=== PATIENT | male | born 1990 | race Caucasian/White ===

== ENCOUNTER 2016-09-26 19:53 | Emergency (ER) | payer BC, SELFPAY ==
[~2016-09-26] VITALS: Ht 177.8 cm; Wt 86.2 kg
[2016-09-26 20:48] LABS: BASO % 0.1 % (0.0-1.0); EOS # 0.2 K/mm3 (0.0-0.50); EOS % 2.2 % (0.0-3.0); LARGE UNSTAINED CELL # 0.1 K/mm3 (0.0-0.4); LARGE UNSTAINED CELL % 1.3 % (0.0-4.0); LYMPH # 1.5 K/mm3 (1.5-6.5); LYMPH % 17.3 % (24.0-44.0); MEAN CORPUSCULAR HEMOGLOBIN 30.2 pg (27.0-33.0); MEAN CORPUSCULAR HGB CONC 34.2 g/dl (32.0-36.5); MEAN CORPUSCULAR VOLUME 88.3 fl (80.0-96.0); MONO # 0.4 K/mm3 (0.0-0.8); MONO % 4.7 % (0.0-5.0); NEUTROPHILS % 74.3 % (36.0-66.0); PLATELET COUNT, AUTOMATED 244 k/mm3 (150-450); RED CELL DISTRIBUTION WIDTH 11.9 % (11.5-14.5); WHITE BLOOD COUNT 8.1 K/mm3 (4.0-10.0)
[2016-09-26 21:12] VITALS: BP 136/81
--- NOTE | 2016-09-27 20:24 | ECGEPIP ---
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
== END 2016-09-26 21:20 | disposition left against medical advice (07) ==
LOC: M ED 20:25
DX: F11.10 Opioid abuse, uncomplicated (principal)

== ENCOUNTER 2017-01-04 17:07 | Emergency (ER) | payer MEDICAID, SELFPAY ==
[~2017-01-04] VITALS: Ht 177.8 cm; Wt 83.3 kg
[2017-01-04 17:09] VITALS: BP 99/71
[2017-01-04] MEDS ORDERED: NORCO, ANEXSIA 5/325MG TABLET (HYDROcodone/ACETAMINOPHEN) PO ONE (17:45)
[2017-01-04] MEDS ORDERED: NORCOTAB PO (17:56)
[2017-01-04] MEDS ORDERED: NAPR500T PO (17:56)
--- NOTE | 2017-01-04 18:20 | REP ---
Clinical: Trauma. Technique: Frontal view of the chest with multiple views of the left hemithorax. Findings: Frontal view of the chest demonstrates no acute cardiopulmonary process. Multiple views of the left hemithorax demonstrates no obvious acute rib fracture or pathology. Impression: Normal left rib series Signed by Julian Crowell MD 01/04/2017 06:12 P
== END 2017-01-04 18:13 | disposition home or self-care (01) ==
LOC: M ED 17:53
DX: S20.219A Contusion of unspecified front wall of thorax, initial encounter (principal); F17.210 Nicotine dependence, cigarettes, uncomplicated; Y04.0XXA Assault by unarmed brawl or fight, initial encounter; Y92.89 Other specified places as the place of occurrence of the external cause; Y93.89 Activity, other specified; Y99.9 Unspecified external cause status

== ENCOUNTER 2018-09-05 17:42 | Emergency (ER) | payer MEDICAID ==
[~2018-09-05] VITALS: Ht 177.8 cm; Wt 81.8 kg
[2018-09-05 17:42] VITALS: BP 134/93
[~2018-09-05 17:42] MED LIST: NAPR-50 PO; NORCOTAB PO
[2018-09-05] MEDS ORDERED: LIDO1SOL7 PO (18:10)
[2018-09-05] MEDS ORDERED: IBUP-1022 PO (18:10)
[2018-09-05] MEDS ORDERED: PENI500T PO (18:10)
[2018-09-05] MEDS ORDERED: PENICILLIN V POTASSIUM 500 MG TAB PO ONE (18:15)
[2018-09-05] MEDS ORDERED: LIDOCAINE VISCOUS 2% SOLN 15ML UDC SS ONE (18:15)
== END 2018-09-05 18:21 | disposition home or self-care (01) ==
LOC: M ED 17:42
DX: K04.7 Periapical abscess without sinus (principal); K06.9 Disorder of gingiva and edentulous alveolar ridge, unspecified; F17.210 Nicotine dependence, cigarettes, uncomplicated

== ENCOUNTER 2019-02-07 19:01 | Emergency (ER) | payer MEDICAID, OTHER ==
[~2019-02-07] VITALS: Ht 177.8 cm; Wt 68.6 kg
[~2019-02-07 19:01] MED LIST changes: +HYDR-3715 PO; +IBUP-1022 PO; +LIDO1SOL8 PO; -NAPR-50 PO; +NAPR-837 PO; -NORCOTAB PO; +PENI500T PO
[2019-02-07 19:02] VITALS: BP 129/79
== END 2019-02-07 21:53 | disposition home or self-care (01) ==
LOC: M ED 19:01
DX: K40.90 Unilateral inguinal hernia, without obstruction or gangrene, not specified as recurrent (principal)

== ENCOUNTER 2019-05-23 07:35 | Day surgery (SDC) | payer OTHER ==
[~2019-05-23] VITALS: Ht 177.8 cm; Wt 67.1 kg
[~2019-05-23 07:35] MED LIST changes: +EQ I1CAP PO; +KETOROLAC 60 MG/2 ML VIAL (J1885) As Ordered ONE; +LIDOCAINE 2% INJ 100 MG/5 ML SDV (FOR ANES.) As Ordered ONE; +LR 1,000 ML IV ONE; +ONDANSETRON 4MG/2ML VIAL (J2405) As Ordered ONE; +PROPOFOL 200 MG/20 ML VIAL As Ordered ONE; +ROCURONIUM BROMIDE 50 MG/5 ML VIAL As Ordered ONE; +dexameTHASONE 4 MG/ML 1ML VIAL (J1100) As Ordered ONE
[2019-05-23] MEDS ORDERED: MIDAZOLAM INJ 2 MG/2 ML VIAL (J2250) As Ordered ONE (08:50)
[2019-05-23] MEDS ORDERED: fentaNYL 250 MCG/5 ML INJECTION (J3010) As Ordered ONE (08:50)
[2019-05-23] MEDS ORDERED: BUPIVACAINE/EPIN 0.25% 30 ML VIAL As Ordered ONE (09:27)
[2019-05-23] MEDS ORDERED: ePHEDrine SULFATE 25 MG/5 ML(5MG/ML) SYRINGE As Ordered ONE (10:03)
[2019-05-23] MEDS ORDERED: ceFAZolin 1GM INJ (J0690 PER 500MG) As Ordered ONE (10:11)
[2019-05-23] MEDS ORDERED: ROCURONIUM BROMIDE 50 MG/5 ML VIAL As Ordered ONE (10:46)
[2019-05-23] MEDS ORDERED: SUGAMMADEX SODIUM 500 MG/5 ML VIAL (BRIDION) As Ordered ONE (11:00)
[2019-05-23] MEDS ORDERED: fentaNYL 100 MCG/2 ML INJECTION (J3010) As Ordered ONE ×2 (11:07→11:25)
--- NOTE | 2019-05-23 11:20 | RO ---
DATE OF PROCEDURE: 05/23/2019 PREOPERATIVE DIAGNOSIS: Left inguinal hernia. POSTOPERATIVE DIAGNOSIS: Left inguinal hernia (direct and indirect). PROCEDURE: Robotic-assisted left inguinal hernia repair with ProGrip mesh. SURGEON: Jason Slater Jr., MD PULL TAB DEALER: GELY Pretty (provided trocar placement, trocar site closure, mesh placement, instrument exchange) ANESTHESIA: General endotracheal anesthesia. ESTIMATED BLOOD LOSS (EBL): Minimal. FLUIDS: Crystalloid. DESCRIPTION OF PROCEDURE: Brief procedure summary: The patient was brought to the operating room and was given general anesthesia. After adequate anesthesia and preoperative antibiotics were given, the patient was prepped and draped in t he usual sterile fashion. A supraumbilical incision was made with skin knife. Blunt dissection was carried down to fascia, Veress needle placed into the abdominal cavity, insufflated to 15 mm of pressure, and a dilating 8-mm trocar was placed at this time under direct visualization. Two lateral 8-mm trocars were placed. The patient was placed in Trendelenburg position, and the camera was docked. The peritoneum on the left-hand side was taken down with monopolar cut scissors. The patient is a very thin individual, and his peritoneum was extremely thin, but I was able to stay without making any rents in the peritoneum, and this was dissected out quite nicely off the cord structures, as well as off the direct component area. Once this was appropriately mobilized, the mesh was placed in the preperitoneal space and the peritoneum closed with a running 3-0 V-Loc suture. The trocars were removed under direct visualization. 4-0 Vicryl was used close all skin incisions. Steri-Strips and a dry sterile dressing were applied. The patient was awakened, extubated, brought to the recovery room awake, alert, hemodynamically stable. Sponge and needle counts correct times two.
[2019-05-23] MEDS ORDERED: PERCOCET 5MG/325MG TAB As Ordered ONE (11:25)
[2019-05-23] MEDS: fentaNYL 100 MCG/2 ML INJECTION (J3010) IV PRN ×4 (11:27→11:44)
[2019-05-23] MEDS: PERCOCET 5MG/325MG TAB PO PRN ×2 (11:29→11:59)
[2019-05-23] MEDS ORDERED: MORPHINE 10 MG/ML 1ML VIAL (J2270) IV PRN (11:30)
[2019-05-23] MEDS ORDERED: ONDANSETRON 4MG/2ML VIAL (J2405) IV PRN (11:30)
[2019-05-23] MEDS ORDERED: LR 1,000 ML IV SCH ×2 (11:30)
[2019-05-23] MEDS ORDERED: NORCO, ANEXSIA 5/325MG TABLET (HYDROcodone/ACETAMINOPHEN) PO PRN (11:30)
[2019-05-23 13:05] VITALS: BP 125/80
== END 2019-05-23 13:20 | disposition home or self-care (01) ==
LOC: M SDC 07:35
PROVIDERS: ATTEND Surgery
DX: K40.90 Unilateral inguinal hernia, without obstruction or gangrene, not specified as recurrent (principal); M54.9 Dorsalgia, unspecified; F41.9 Anxiety disorder, unspecified; F17.210 Nicotine dependence, cigarettes, uncomplicated; F12.90 Cannabis use, unspecified, uncomplicated
CPT/HCPCS: 49650; C1781; J0690; J1100; J1885; J2250; J2405; J3010

== ENCOUNTER → 2019-06-27 | Outpatient (CLI) | payer OTHER ==
[~2019-06-27] MED LIST changes: -KETOROLAC 60 MG/2 ML VIAL (J1885) As Ordered ONE; -LIDOCAINE 2% INJ 100 MG/5 ML SDV (FOR ANES.) As Ordered ONE; -LR 1,000 ML IV ONE; -ONDANSETRON 4MG/2ML VIAL (J2405) As Ordered ONE; -PROPOFOL 200 MG/20 ML VIAL As Ordered ONE; -ROCURONIUM BROMIDE 50 MG/5 ML VIAL As Ordered ONE; -dexameTHASONE 4 MG/ML 1ML VIAL (J1100) As Ordered ONE
--- NOTE | 2019-06-27 14:57 | REP ---
REASON FOR EXAM: Left-sided pain. PRIORS: None. The right testicle measures 5 x 2.2 x 3 cm and the left testicle measures 4.4 x 2.4 x 2.7 cm. In the left testicle inferior aspect, there is a tiny 2 mm sized anechoic structure consistent with a small cyst. The testicular parenchymal echo pattern is otherwise unremarkable. The testicular parenchymal echo pattern of the right testicle is within normal limits. Dccp-ha-tura imaging shows the testicular parenchymal echo pattern to be symmetric. Doppler imaging of each testicle shows no evidence of abnormal testicular hyperemia. There are bilateral multiple spermatoceles measuring 2 mm in their greatest dimensions bilaterally. In the region of pampiniform plexus on the left, there are multiple dilated tubular serpiginous nearly anechoic structures. The pre-Valsalva measurement of which is 3 mm and the post-Valsalva measurement of which is 3.4 mm. The right testicular RI is 0.66 and the left is 0.54. IMPRESSION: 1. Incidental tiny left testicular cyst. 2. Incidental bilateral spermatoceles. 3. Left-sided varicocele. Electronically Signed by Francisco Zurita DO 06/27/2019 03:30 P
--- NOTE | 2019-06-27 15:06 | REP ---
REASON FOR EXAM: Assess the right inguinal region for a hernia. Multiple ultrasonographic images of the right inguinal region were obtained before and during Valsalva. There is no ultrasonographic evidence of a bowel containing inguinal hernia. Negative ultrasound examination cannot rule out an inguinal hernia. Electronically Signed by Francisco Zurita DO 06/27/2019 03:31 P
== END ==
LOC: M RAD 12:37
PROVIDERS: ATTEND Nurse Practitioner
DX: N43.40 Spermatocele of epididymis, unspecified (principal); I86.1 Scrotal varices; N44.2 Benign cyst of testis

== ENCOUNTER 2020-05-02 18:25 | Emergency (ER) | payer OTHER ==
[~2020-05-02] VITALS: Ht 177.8 cm; Wt 83.7 kg
[~2020-05-02 18:25] MED LIST changes: -EQ I1CAP PO; +IBUP200C89 PO; -LIDO1SOL8 PO; +LIDO2SOL17 PO
--- NOTE | 2020-05-02 20:32 | REPVR ---
PROCEDURE INFORMATION: Exam: US Scrotum Exam date and time: 05/02/2020 7:58 PM Age: 29 years old Clinical indication: Groin pain; Prior surgery; Surgery date: 6+ months; Surgery type: Lt inguinal hernia repair May 2019; Additional info: L testicular/groin pain HX of inguinal hernia TECHNIQUE: Imaging protocol: Real-time ultrasound of the scrotum and contents with color Doppler and image documentation. COMPARISON: Scrotal, US 06/27/2019 12:50 PM FINDINGS: Right testicle: Normal. No mass. No torsion. Normal vascular flow. Left testicle: Normal. No mass. No torsion. Normal vascular flow. Epididymides: 2 mm cyst on the right. 4 mm cyst on the left. Otherwise normal. Scrotum: Normal. IMPRESSION: No evidence of testicular torsion. Normal testes. Electronically signed by: Kg Parker On 05/02/2020 20:32:05 PM
--- NOTE | 2020-05-02 20:33 | REPVR ---
PROCEDURE INFORMATION: Exam: US Pelvis Limited, Male Exam date and time: 05/02/2020 7:58 PM Age: 29 years old Clinical indication: Other: Lt inguinal pain; Prior surgery; Surgery date: 6+ months; Surgery type: Lt inguinal hernia repair May 2019; Additional info: L testicular/groin pain HX of inguinal hernia TECHNIQUE: Imaging protocol: Real-time pelvic ultrasound with image documentation. COMPARISON: Pelvis, limited US 06/27/2019 1:17 PM FINDINGS: Soft tissues: Scan restricted to the area of interest which is the left inguinal region. No abnormality seen. No evidence of recurrent hernia. No evidence of hernia with Valsalva maneuver. IMPRESSION: No evidence of recurrent left inguinal hernia. Electronically signed by: Kg Parker On 05/02/2020 20:33:13 PM
[2020-05-02 20:49] VITALS: BP 109/61
== END 2020-05-02 21:02 | disposition home or self-care (01) ==
LOC: M ED 18:25
DX: N50.812 Left testicular pain (principal); F17.200 Nicotine dependence, unspecified, uncomplicated; F19.10 Other psychoactive substance abuse, uncomplicated; Z79.1 Long term (current) use of non-steroidal anti-inflammatories (NSAID)